=== PATIENT | female | born 1990 | race Caucasian/White ===

== ENCOUNTER 2024-01-04 16:55 | Emergency (ER) | payer BC, MEDICAID ==
[~2024-01-04] VITALS: Ht 160 cm; Wt 70.8 kg
[2024-01-04 17:33] VITALS: BP 114/78; PULSE 75; RESP 19; TEMP 98; O2SAT 99
[2024-01-04] MEDS ORDERED: PREG150C PO (18:28)
[2024-01-04] MEDS ORDERED: TRAZ-343 PO (18:28)
== END 2024-01-04 18:41 | disposition home or self-care (01) ==
LOC: MED 16:55
DX: M79.7 Fibromyalgia (principal); M32.9 Systemic lupus erythematosus, unspecified; G47.00 Insomnia, unspecified; Z76.0 Encounter for issue of repeat prescription; Z79.899 Other long term (current) drug therapy
CPT/HCPCS: 99281